=== PATIENT | female | born 1985 | race African-American/Black ===

== ENCOUNTER 2016-12-17 07:46 | Emergency (ER) | payer SELFPAY ==
[2016-12-17] MEDS ORDERED: MAG HYDROX/AL HYDROX/SIMETH 30 ML, Lidocaine 2%Visc 15ml 20 MG, PHENobarb/HYOSCY/ATROPI... PO ONE ×3 (08:39)
[2016-12-17 08:41] LABS: APPEARANCE,URINE Clear (CLEAR); COLOR,URINE Yellow (YELLOW); OCCULT BLOOD,URINE Negative (NEGATIVE); PH URINE 5.5 (5.0 - 8.0); UROBILINOGEN URINE 0.2 Eu (0.2-1.0)
--- NOTE | 2016-12-17 08:41 | ED Physician Documentation ---
Chest Pain - HISTORIAN Historian: patient - HPI Stated Complaint: concern re uti poss yeast or std Chief Complaint: Female Urogenital Problems Onset: days ago (2) Timing: still present (several prev uti and occ yeast inf) Last known Well Date: 12/15/16 Last Known Well Time: 17:00 Severity: mild, moderate Quality: burning, other (mild vag discharge) Chest Pain Signs/Symptoms: denies: nausea, vomiting, diaphoresis - ROS CONST: no problems MS/LYMPH: none GI/: none EYES/ENT: denies: problems with vision, sore throat SKIN/ENDO: denies: rash NEURO/PSYCH: none - PAST HX VT risk factors: no pertinent history DVT/PE Risk Factors: none Neuro deficit: none GI disease: none Lung disease: none Surgeries/Procedures: none Allergies/Adverse Reactions: Allergies Allergy/AdvReac Type Severity Reaction Status Date / Time amoxicillin Allergy Intermediate Hives Verified 12/17/16 07:54 Penicillins Allergy Intermediate Hives Verified 12/17/16 07:54 Home Medications: Ambulatory Orders Medication Instructions Recorded NK [NK] 12/17/16 - SOCIAL HX Smoking History: non-smoker Alcohol Use: none Drug Use: none - FAMILY HX Family HX: none - VITAL SIGNS Vital Signs: Vital Signs Temp Pulse Resp BP Pulse Ox 98.1 F 98 H 18 113/74 99 12/17/16 07:50 12/17/16 07:50 12/17/16 07:50 12/17/16 07:50 12/17/16 07:50 - REVIEWED ASSESSMENTS Nursing Assessment Reviewed: Yes Vitals Reviewed: Yes ED Results Lab/Radiology - Orders Orders: ED Orders Category Date Time Status URINALYSIS Routine Lab 12/17/16 Ordered Gi Cocktail Med 12/17/16 08:39 Ordered Mag Hydrox/Al Hydrox/Simeth [Mylanta] 30 ml Lidocaine 2%Visc 15ml [Xylocaine] 20 mg PHENobarb/HYOSCY/ATROPINE/SCOP [] 10 ml PO NOW Chest Pain Physical Exam - EXAM General Appearance: no acute distress, anxious, other (renal punch test neg) EENT: eye inspection normal Neck: nml inspection, no carotid bruit Respiratory: no resp. distress CVS: reg. rate & rhythm, no murmur Abdomen: soft, non-tender Skin: warm/dry, normal color. No: cyanosis, diaphoresis, jaundice Extremities: non-tender, normal range of motion Neuro: oriented X3 Discharge Clincal Impression: vaginitis - possible STD, Candidiasis of female genitalia Home Medications: Ambulatory Orders NK [NK] 12/17/16 Condition: Good Disposition: 01 HOME, SELF-CARE Decision to Admit: NO Decision Time: 09:23
[2016-12-17] MEDS ORDERED: AZITHROMYCIN 250 MG TABLET PO ONE (09:08)
[2016-12-17] MEDS ORDERED: Lidocaine 1% 5ml(IM or SUTURE)(PAIN CLINIC) ONE (09:08)
[2016-12-17] MEDS: Lidocaine 1% 5ml(IM or SUTURE)(PAIN CLINIC) IJ ONE (09:10)
[2016-12-17] MEDS: AZITHROMYCIN 250 MG TABLET PO ONE (09:10)
[2016-12-17 09:37] VITALS: BP 122/82
== END 2016-12-17 09:26 | disposition home or self-care (01) ==
LOC: ED 07:46
DX: B37.3 Candidiasis of vulva and vagina (principal)
CPT/HCPCS: 81002; J0696; 96372; 99283

== ENCOUNTER 2017-01-12 10:39 | Outpatient (CLI) | payer SELFPAY ==
[2017-01-12 11:18] LABS: BASOPHILS % 0.3 (0.0-1.5); EOSINOPHILS % 1.8 % (0.0-6.8); LYMPHOCYTES # 1.4 # k/uL (0.6-4.0); MEAN CORPUSCULAR HEMOGLOBIN 21.4 pg (28.0-34.0); MONOCYTES # 0.2 # k/uL (0.0-0.9); MONOCYTES % 4.9 % (0.0-11.0); NEUTROPHILS # 2.5 # k/uL (1.4-7.7)
[2017-01-12 11:47] LABS: eGFR (African) > 60; eGFR (Non-African) > 60
--- NOTE | 2017-01-12 14:02 | Diagnostic Imaging Report ---
OPAL ELIZONDO [facility] [address] [facility] [address] [address] Report Submission Date: Jan 12, 2017 1:43:32 PM CDT Patient Study Name: UTE VALENZUELA Date: Jan 12, 2017 11:18:55 AM CDT Modality Type: CR Gender: F Description: CHEST : 81 Institution: [facility] Physician: OPAL ELIZONDO Chest two views HISTORY: Left-sided chest pain FINDINGS: The exam is slightly limited by obesity. There is no infiltrate or pleural effusion. Heart size and pulmonary vascularity are normal. Osseous structures are unremarkable. IMPRESSION: Normal chest. Electronically signed on Jan 12, 2017 1:43:32 PM CDT by: Gavin BORGES
== END 2017-01-12 10:40 ==
LOC: LAB 10:39
PROVIDERS: ATTEND Family Medicine
DX: R53.82 Chronic fatigue, unspecified (principal); R07.2 Precordial pain; F31.62 Bipolar disorder, current episode mixed, moderate; F33.1 Major depressive disorder, recurrent, moderate
CPT/HCPCS: 36415; 71020; 80053; 84443; 85025

== ENCOUNTER 2017-07-03 09:35 | Emergency (ER) | payer SELFPAY ==
[2017-07-03] MEDS ORDERED: KETOROLAC TROMETHAMINE 60 MG/2 ML VIAL IM ONE (09:53)
--- NOTE | 2017-07-03 10:04 | ED Physician Documentation ---
General Adult - HISTORIAN Historian: patient - HPI Stated Complaint: L shoulder pain Chief Complaint: General Adult Onset: days ago Timing: still present Severity: moderate Further Comments: yes (Pt is a 32 yo female with L shoulder pain for the past month, worse over the past 3 days. Pt does not recall injuring her shoulder, though she did mow her lawn a few days ago. Pain sometimes radiates from her shoulder into upper arm and to her L scapula.) - ROS CONST: no problems EYES/ENT: none CVS/RESP: none GI/: none MS/SKIN/LYMPH: other (L shoulder pain) - PAST HX Past History: none Allergies/Adverse Reactions: Allergies Allergy/AdvReac Type Severity Reaction Status Date / Time amoxicillin Allergy Intermediate Hives Verified 12/17/16 07:54 Penicillins Allergy Intermediate Hives Verified 12/17/16 07:54 Home Medications: Ambulatory Orders Medication Instructions Recorded NK [NK] 12/17/16 - SOCIAL HX Smoking History: non-smoker - FAMILY HX Family History: No - VITAL SIGNS Vital Signs: Vital Signs Temp Pulse Resp BP Pulse Ox 122/82 12/17/16 09:26 - REVIEWED ASSESSMENTS Nursing Assessment Reviewed: Yes Vitals Reviewed: Yes Progress - Progress Progress: Toradol 60 mg IM Sling d/c instructions: Sling NSAIDS rotator cuff strain ED Results Lab/Radiology - Orders Orders: ED Orders Category Date Time Status Sling to Affected Extremity 1T Care 07/03/17 09:53 Active Ketorolac Tromethamine [Toradol] Med 07/03/17 09:53 Discontinued 60 mg IM NOW ONE General Adult Physical Exam - PHYSICAL EXAM GENERAL APPEARANCE: no distress NECK: normal inspection, supple RESPIRATORY: no resp distress, chest non-tender, breath sounds normal CVS: reg rate & rhythm, heart sounds normal BACK: normal inspection SKIN: warm/dry, normal color EXTREMITIES: other (slight weakness with lateral extention against resistance L v R. Otherwise, rotator cuff manuevers are wnl.) NEURO: oriented X3, motor nml, sensation nml Discharge Clincal Impression: Rotator cuff strain Qualifiers: Encounter type: initial encounter Laterality: left Qualified Code(s): S46.012A - Strain of muscle(s) and tendon(s) of the rotator cuff of left shoulder, initial encounter Referrals: Fer Campos MD [Primary Care Provider] - Condition: Good Disposition: 01 HOME, SELF-CARE Decision to Admit: NO Decision Time: 10:21
[2017-07-03 10:47] VITALS: BP 122/78
== END 2017-07-03 10:40 | disposition home or self-care (01) ==
LOC: ED 09:35
DX: S46.012A Strain of muscle(s) and tendon(s) of the rotator cuff of left shoulder, initial encounter (principal); X58.XXXA Exposure to other specified factors, initial encounter; Y93.9 Activity, unspecified; Y99.9 Unspecified external cause status
CPT/HCPCS: 96372; 99283; J1885

== ENCOUNTER 2017-09-13 10:06 | Emergency (ER) | payer SELFPAY ==
[2017-09-13] MEDS ORDERED: PANTOPRAZOLE SODIUM 40 MG TABLET ONE (10:44)
[2017-09-13] MEDS ORDERED: PANTOPRAZOLE SODIUM 40 MG TABLET PO ONE (10:47)
--- NOTE | 2017-09-13 10:52 | ED Physician Documentation ---
Altered Mental Status - HISTORIAN Historian: patient, parent - HPI Chief Complaint: Altered Mental Status Onset: other (took ten of the 22omg naproxen last noct-"hoping to not wake up"-- has also gone to [facility] few times to drown self but decided not to do so.) Character of Altered Mental Status: decreased responsiveness. denies: disoriented, confused, combative, agitated Context: none Cognition is Usually: alert, oriented x3 Gait is Usually: walks w/o assistance Associated Symptoms: none, abdominal pain. denies: fever, chills - ROS EYES/ENT: denies: problems with vision, sore throat, trouble swallowing CVS/RESP: none GI/: abdominal pain, nausea MS/SKIN/LYMPH: none NEURO/PSYCH: depression - PAST HX Past History: overdose, psychiatric disorder, bipolar, depression, other ( anxiety. took zoloft age 16--rec rx from DR ELIZONDO for lithium but inadequate money for refill medls) Other History: none, other (tonsils ear tubes as child) Immunizations: UTD - SOCIAL HX Smoking History: non-smoker Alcohol Use: rarely Drug Use: none - FAMILY HX Family History: no significant history - REVIEWED ASSESSMENTS Nursing Assessment Reviewed: Yes Vitals Reviewed: Yes <Brent Waite - Last Filed: 09/13/17 10:49> - HISTORIAN Historian: patient - [facility] Last known Well Date: 09/10/17 Last Known Well Time: 08:00 Last known Well Code/Unknown Code: Unknown Character of Altered Mental Status: none (mood is good no complaints ) Cognition is Usually: alert, oriented x3 Gait is Usually: walks w/o assistance Associated Symptoms: none - ROS CVS/RESP: none GI/: none MS/SKIN/LYMPH: none - PAST HX Past History: psychiatric disorder Surgeries/Procedures: none - SOCIAL HX Alcohol Use: rarely Drug Use: none <Katelyn Sin - Last Filed: 09/13/17 21:27> - [facility] Additional Information: suicide ideation and attempt (Brent Waite) - PAST HX Allergies/Adverse Reactions: Allergies Allergy/AdvReac Type Severity Reaction Status Date / Time Penicillins Allergy Intermediate Hives Verified 09/13/17 10:37 amoxicillin Allergy Unknown Hives Verified 09/13/17 10:37 Home Medications: Ambulatory Orders Medication Instructions Recorded NK [NK] 12/17/16 - VITAL SIGNS Vital Signs: Vital Signs Temp Pulse Resp BP Pulse Ox 98.1 F 83 16 129/84 98 09/13/17 18:02 09/13/17 18:02 09/13/17 18:02 09/13/17 18:02 09/13/17 18:02 - Lab Results Lab Results: Lab Results 09/13/17 09/13/17 09/13/17 11:20 11:20 11:10 WBC RBC Hgb Hct MCV MCH MCHC RDW Plt Count Neut % (Auto) Lymph % (Auto) [place] % (Auto) Eos % (Auto) Baso % (Auto) Neut # (Auto) Lymph # (Auto) [place] # (Auto) Eos # (Auto) Baso # (Auto) Reactive Lymphs % Reactive Lymphs # PT INR Sodium 138 mmol/L mmol/L (136-145) Potassium 3.3 mmol/L L mmol/L (3.5-5.1) Chloride 107 mmol/L mmol/L (98-107) Carbon Dioxide 22 mmol/L mmol/L (22-30) BUN 14 mg/dL mg/dL (7-17) Creatinine 0.90 mg/dL mg/dL (0.52-1.04) Estimated Creat Clear 148 Est GFR ( Amer) > 60 (60 - ) Est GFR (Non-Af Amer) > 60 (60 - ) Glucose 95 mg/dL mg/dL (74-106) Calcium 8.9 mg/dL mg/dL (8.4-10.2) Total Bilirubin 0.3 mg/dL mg/dL (0.2-1.3) AST 19 U/L U/L (15-46) ALT 21 U/L U/L (13-69) Alkaline Phosphatase 104 U/L U/L (38-126) Total Protein 8.3 g/dL H g/dL (6.3-8.2) Albumin 3.7 g/dL g/dL (3.5-5.0) Urine Color Yellow (YELLOW) Urine Appearance Clear (CLEAR) Urine pH 5.5 (5.0 - 8.0) Ur Specific [place] >=1.030 H (1.010-1.030) Urine Protein 1+ mg/dL H mg/dL (NEGATIVE) Urine Ketones 1+ mg/dL H mg/dL (NEGATIVE) Urine Occult Blood Negative (NEGATIVE) Urine Nitrite Negative (NEGATIVE) Urine Bilirubin Negative (NEGATIVE) Urine Urobilinogen 0.2 Eu Eu (0.2-1.0) Ur Leukocyte Esterase Negative (NEGATIVE) Urine RBC 2-5 H (0-2 HPF) Urine WBC 0-2 (0-5 HPF) Ur Squamous Epith Cells Moderate H (NEG-FEW) Amorphous Sediment Few H (NEGATIVE) Urine Mucus Present H (NEGATIVE) Urine Glucose Negative mg/dL mg/dL (NEGATIVE) Opiates Screen Negative ng/mL ng/mL (<300) Methadone Screen Negative ng/mL ng/mL (<300) Ur Propoxyphene Screen Negative ng/mL ng/mL (<300) Acetaminophen < 10.0 ug/mL L ug/mL (10-30) POC Urine Barbiturates Non negative ng/mL H ng/mL (<200) Tricyclic Antidepress Non negative ng/mL H ng/mL (<300) Amphetamines Screen Negative ng/mL ng/mL (<1000) POC Ur Methamphetamine Negative ng/mL ng/mL (<1000) Benzodiazepines Screen Negative ng/mL ng/mL (<300) Cocaine Screen Negative ng/mL ng/mL (<300) Marijuana (THC) Screen Non negative ng/mL H ng/mL (<50) Ethyl Alcohol < 10.0 mg/dL mg/dL (0.0-10.0) 09/13/17 09/13/17 11:10 11:10 WBC 6.60 K/ul K/ul (4.00-12.00) RBC 4.26 M/ul M/ul (3.90-5.20) Hgb 8.1 g/dL L g/dL (12.0-16.0) Hct 31.4 % L % (34.5-46.5) MCV 73.6 fl L fl (80.0-100.0) MCH 19.1 pg L pg (28.0-34.0) MCHC 26.0 g/dL L g/dL (30.0-36.0) RDW 17.3 % H % (11.3-14.3) Plt Count 438 K/mm3 H K/mm3 (130-400) Neut % (Auto) 76.6 % % (39.0-79.0) Lymph % (Auto) 14.1 % L % (16.0-50.0) Barn[place] % (Auto) 5.6 % % (0.0-11.0) Eos % (Auto) 2.0 % % (0.0-6.8) Baso % (Auto) 0.3 (0.0-1.5) Neut # (Auto) 5.1 # k/uL # k/uL (1.4-7.7) Lymph # (Auto) 0.9 # k/uL # k/uL (0.6-4.0) [place] # (Auto) 0.4 # k/uL # k/uL (0.0-0.9) Eos # (Auto) 0.1 # k/uL # k/uL (0.0-0.6) Baso # (Auto) 0.0 # k/uL # k/uL (0.0-0.5) Reactive Lymphs % 1.3 % % (0.0-5.0) Reactive Lymphs # 0.1 # k/uL # k/uL (0.0-0.8) PT 10.4 Seconds Seconds (9.4-11.6) INR 0.99 (0.9-1.2) Sodium Potassium Chloride Carbon Dioxide BUN Creatinine Estimated Creat Clear Est GFR ( Amer) Est GFR (Non-Af Amer) Glucose Calcium Total Bilirubin AST ALT Alkaline Phosphatase Total Protein Albumin Urine Color Urine Appearance Urine pH Ur Specific [place] Urine Protein Urine Ketones Urine Occult Blood Urine Nitrite Urine Bilirubin Urine Urobilinogen Ur Leukocyte Esterase Urine RBC Urine WBC Ur Squamous Epith Cells Amorphous Sediment Urine Mucus Urine Glucose Opiates Screen Methadone Screen Ur Propoxyphene Screen Acetaminophen POC Urine Barbiturates Tricyclic Antidepress Amphetamines Screen POC Ur Methamphetamine Benzodiazepines Screen Cocaine Screen Marijuana (THC) Screen Ethyl Alcohol - Orders Orders: ED Orders Category Date Time Status ACETAMINOPHEN LEVEL Routine Lab 09/13/17 11:10 Completed ALCOHOL MEDICAL USE ONLY Routine Lab 09/13/17 11:10 Completed BARBITURATES,QUANT,URINE Routine Lab 09/13/17 11:50 Received CBC/PLATELET/DIFF Routine Lab 09/13/17 11:10 Completed CMP Routine Lab 09/13/17 11:10 Completed DRUG SCREEN URINE MEDICAL ONLY Routine Lab 09/13/17 11:20 Completed PT-INR Routine Lab 09/13/17 11:10 Completed SALICYLATE LEVEL Stat Lab 09/13/17 11:10 Received TRICYCLIC ANTIDEPRESSANTS CONF Routine Lab 09/13/17 11:50 Received URINALYSIS Routine Lab 09/13/17 11:20 Completed Pantoprazole Sodium [Protonix] Med 09/13/17 10:44 Discontinued 40 mg .ROUTE .STK-MED ONE Pantoprazole Sodium [Protonix] Med 09/13/17 10:47 Discontinued 40 mg PO NOW ONE Altered Mental Status Physical - Physical Exam General Appearance: moderate distress Neuro/Psych: anxiety, depression alert, oriented x3. No: mood/affect nml No: facial palsy Peripheral Exam: motor nml, sensation nml. No: weakness, hemiparesis, hemiplegia HEENT: LAMAR, EOM's intact, no apparent trauma Neck: normal inspection Respiratory: no resp distress, breath sounds normal CVS: reg rate & rhythm, heart sounds normal Abdomen: non-tender Skin: warm/dry, normal color. No: cyanosis, diaphoresis, jaundice Extremities: non-tender, normal range of motion, no evidence of injury, no edema <Brent Waite - Last Filed: 09/13/17 10:49> - Physical Exam General Appearance: no acute distress Neuro/Psych: other (reports history an depression ) alert Peripheral Exam: motor nml, sensation nml HEENT: LAMAR Respiratory: no resp distress CVS: reg rate & rhythm, heart sounds normal, occasional extrasystoles Skin: warm/dry, normal color <Katelyn Sin - Last Filed: 09/13/17 21:27> Discharge <Brent Waite - Last Filed: 09/13/17 10:49> Decision to Admit: NO Date of Decison to Admit: 09/13/17 Decision Time: 21:27 <Katelyn Sin - Last Filed: 09/13/17 21:27> Clincal Impression: Suicidal ideations Referrals: Fer Campos MD [Primary Care Provider] - 2 Days Comments: Transferred via ambulance to [facility] for inpatient psychiatric care accepting Dr Hays (Katelyn Sin) Condition: Stable Disposition: 09 ADMITTED INPATIENT
[2017-09-13 11:19] LABS: BASOPHILS % 0.3 (0.0-1.5); MEAN CORPUSCULAR HEMOGLOBIN 19.1 pg (28.0-34.0); MEAN CORPUSCULAR VOLUME 73.6 fl (80.0-100.0); MONOCYTES % 5.6 % (0.0-11.0); NEUTROPHILS # 5.1 # k/uL (1.4-7.7)
[2017-09-13 11:39] LABS: APPEARANCE,URINE Clear (CLEAR); COLOR,URINE Yellow (YELLOW); OCCULT BLOOD,URINE Negative (NEGATIVE); PH URINE 5.5 (5.0 - 8.0); UROBILINOGEN URINE 0.2 Eu (0.2-1.0)
[2017-09-13 11:40] LABS: eGFR (African) > 60; eGFR (Non-African) > 60
[2017-09-13 11:57] LABS: AMPHETAMINE NEGATIVE ng/mL (<1000); BARBITURATES NON NEGATIVE ng/mL (<200); CANNABINOIDS NON NEGATIVE ng/mL (<50); COCAINE NEGATIVE ng/mL (<300); METHAMPHETAMINE NEGATIVE ng/mL (<1000)
[2017-09-13 12:03] LABS: AMORPHOUS SEDIMENT,UR FEW (NEGATIVE)
[2017-09-13 21:31] VITALS: BP 132/74
== END 2017-09-13 21:29 ==
LOC: ED 10:06
DX: R45.851 Suicidal ideations (principal)
CPT/HCPCS: 36415; 80053; 80302; 80304; 80320; 80377; 81002; 85025; 85610; 99284; G0477; G0479; G0480; G0481

== ENCOUNTER 2019-07-10 21:36 | Emergency (ER) | payer SELFPAY ==
[2019-07-10] MEDS: KETOROLAC TROMETHAMINE 60 MG/2 ML VIAL IM ONE (22:25)
--- NOTE | 2019-07-10 23:06 | ED Physician Documentation ---
General Adult - HPI Stated Complaint: L CALF PAIN Chief Complaint: General Adult Onset: hours Timing: still present Severity: moderate Further Comments: yes (Pt is a 34 yo female with L calf pain. Pt was climbing stairs when she felt a sudden pain in her L calf. Pt did not fall. Pt has pain in calf with ankle dorsiflexion and pain in L knee.) - ROS CONST: no problems EYES/ENT: none CVS/RESP: none GI/: none MS/SKIN/LYMPH: other (L knee, calf pain) - PAST HX Past History: other (bipolar d/o, ) Surgeries/Procedures: other (tonsillectomy) Allergies/Adverse Reactions: Allergies Allergy/AdvReac Type Severity Reaction Status Date / Time Penicillins Allergy Intermediate Hives Verified 07/10/19 21:52 amoxicillin Allergy Unknown Hives Verified 07/10/19 21:52 - SOCIAL HX Smoking History: cigarettes - FAMILY HX Family History: No - VITAL SIGNS Vital Signs: Vital Signs Temp Pulse Resp BP Pulse Ox 97.5 F L 83 18 117/76 100 07/10/19 21:36 07/10/19 21:36 07/10/19 21:36 07/10/19 21:36 07/10/19 21:36 - REVIEWED ASSESSMENTS Nursing Assessment Reviewed: Yes Vitals Reviewed: Yes Progress - Progress Progress: D-dimer - neg X-ray L knee - neg Toradol 60 mg IM Crutches as needed SIMA wrap Ibuprofen 200 mg. Take 2 or 3 tablets every 8 hours with food. If symptoms persist, f/u with primary provider or orthopedic doctor in one week. ED Results Lab/Radiology - Orders Orders: ED Orders Category Date Time Status KNEE 1 OR 2 VIEWS [RAD] Stat Exams 07/10/19 Ordered CBC/PLATELET/DIFF Routine Lab 07/10/19 22:26 Received CMP Routine Lab 07/10/19 22:26 Received D DIMER Stat Lab 07/10/19 22:26 Received Ketorolac Tromethamine [Toradol] Med 07/10/19 22:20 Discontinued 60 mg IM NOW ONE General Adult Physical Exam - PHYSICAL EXAM GENERAL APPEARANCE: moderate distress NECK: normal inspection, supple RESPIRATORY: no resp distress, chest non-tender, breath sounds normal CVS: reg rate & rhythm, heart sounds normal BACK: normal inspection, no CVA tenderness SKIN: warm/dry, normal color EXTREMITIES: other (L calf tenderness, no swelling, redness or increased warmth; L knee, no ligamentous instability, no swelling or effusion.) NEURO: oriented X3, motor nml, sensation nml Discharge Clincal Impression: Pain of left calf Referrals: Fer Campos MD [Primary Care Provider] - Condition: Stable Disposition: 01 HOME, SELF-CARE Decision to Admit: NO Decision Time: 23:07
[2019-07-10 23:52] VITALS: BP 122/82
[2019-07-11 06:35] LABS: eGFR (Non-African) > 60
[2019-07-11 06:36] LABS: BASOPHILS % 0.4 % (0.0-1.5); NEUTROPHILS # 2.2 # k/uL (1.4-7.7)
--- NOTE | 2019-07-11 06:40 | Diagnostic Imaging Report ---
JEB CUMMINGS [facility] [address] [facility] [address] [address] Report Submission Date: Jul 10, 2019 10:51:10 PM CDT Patient Study Name: UTE VALENZUELA Date: Jul 10, 2019 10:25:49 PM CDT Modality Type: DX Gender: F Description: KNEE 1 OR 2 VIEWS : 81 Institution: [facility] Physician: JEB CUMMINGS Three views of left knee Clinical history: Pain. Findings: Examination left knee in AP, lateral and sunrise views fails to demonstrate evidence of fracture, dislocation or other bone or joint pathology. Electronically signed on Jul 10, 2019 10:51:10 PM CDT by: Roderick BORGES
== END 2019-07-10 23:30 | disposition home or self-care (01) ==
LOC: ED 21:36
DX: R10.9 Unspecified abdominal pain (principal); M79.662 Pain in left lower leg
CPT/HCPCS: 73560; 80053; 85025; 85379; 96372; 99283; 99284; J1885